=== PATIENT | female | born 1965 | race Caucasian/White ===

== ENCOUNTER → 2016-09-16 15:10 | Outpatient (CLI) | payer BC | END | disposition home or self-care (01) | LOC: D.MRI 15:10 | DX: M54.5 Low back pain (principal) ==

== ENCOUNTER → 2016-11-26 10:12 | Outpatient (CLI) | payer BC | END | disposition home or self-care (01) | LOC: D.US 10:12 | DX: R10.13 Epigastric pain (principal); K21.9 Gastro-esophageal reflux disease without esophagitis; R11.0 Nausea ==

== ENCOUNTER 2017-01-06 11:34 | Outpatient (CLI) | payer BC ==
[~2017-01-06] VITALS: Ht 162.6 cm; Wt 70.0 kg
--- NOTE | ~2017-01-06 | OP ---
PATIENT NAME: MAYRA HERNANDEZ MEDICAL RECORD: [id number] :61 LOCATION:D.CAT ADMISSION DATE: SURGEON: DELIA MCALLISTER MD DATE OF OPERATION: 01/06/2017 PROCEDURE: Left heart catheterization, selective coronary angiography, right femoral artery approach. CATHETERS: A radial catheter and Hickory catheter. The patient was returned to love, sheath removed and TR band was placed. FINDINGS: Left ventriculography in 30-degree QUAN view. Normal wall motion, normal systolic function. CORONARY ANATOMY: Left main: Left main free of disease. LAD: Free of disease in the diagonal system. CIRCUMFLEX: Free of disease in the marginal system. RIGHT CORONARY ARTERY: Dominant artery, gives rise to PDA, free of disease. IMPRESSION: Normal systolic function. Normal coronary anatomy. TRANSINT:[id number] Voice Confirmation ID: [id number] DOCUMENT ID: [id number] DELIA MCALLISTER MD CC: [id number] DICTATION DATE: 01/06/17 1535 PROJECT MANAGER PROCESS DEVELOPMENT: 01/07/17 0101 DEP CLI 01/06/17 [address] [place] [address]
--- NOTE | ~2017-01-06 | HP ---
PATIENT: MAYRA HERNANDEZ MEDICAL RECORD: [id number] ACCOUNT: [id number] LOCATION:DARLENE : 61 ADMISSION DATE: 01/06/17 HISTORY AND PHYSICAL EXAMINATION HISTORY OF PRESENT ILLNESS: A 51-year-old female with history of angina, abnormal ECG, who underwent Cardiolite stress testing in the office, which was found ____ after discussing options, she first proceed with diagnostic angiography to be ready for that purpose. PAST MEDICAL HISTORY: Includes: 1. History of chest pain. 2. ____ unspecified palpitations. 2. Gastroesophageal reflux disease. ALLERGIES: None known. MEDICATIONS: Ambien 10 at bedtime, Cymbalta 60 q. day, propranolol of 10 b.i.d., Protonix 40 q. day. PHYSICAL EXAMINATION: GENERAL: Pleasant female in no acute distress at this time. HEENT: Normocephalic, atraumatic. NECK: No bruits are noted. LUNGS: Good air excursion. ABDOMEN: Soft, nontender. EXTREMITIES: Pulse 2+. No edema. NEUROLOGIC: Grossly intact. IMPRESSION: Angina with positive Cardiolite stress testing. PLAN: For angiography, intervention based on the above. TRANSINT:[id number] Voice Confirmation ID: [id number] DOCUMENT ID: [id number] DELIA MCALLISTER MD CC: [id number] DICTATION DATE: 01/06/17 1310 AD COPY WRITER: 01/06/17 1527 REG [facility] [address] [place] [address]
--- NOTE | ~2017-01-06 | HEMODYNAMI ---
PATIENT:MAYRA HERNANDEZ MEDICAL RECORD: [id number] : 61 LOCATION:DSUDHAKAR ADMISSION DATE: 01/06/17 Generatedon:01/06/201715:34 Patient name: MAYRA HERNANDEZ Patient #: [id number] SSN: : 1965 Date of study: 01/06/2017 Page: Of Hemodynamic Procedure Report Patient Data Patient Demographics Procedure consent was obtained First Name: MAYRA Gender: Female Last Name: DAVID : 1965 [facility] Initial: ROSE Age: 51 year(s) Patient #: [id number] Race: Additional ID: [id number] Contact details Address: [address] [place] [address] rd State: [place] City: [place] Zip code: [address] Past Medical History Allergies: No known allergies Admission Admission Data Admission Date: 01/06/2017 Admission Time: 11:34 Lab Results Lab Result Date: 01/06/2017 Lab Result Time: 0:00 Biochemistry Name Units Result Min Max BUN mg/dl 7 --(*---)-- 7 18 Creatinine mg/dl 0.8 --(-*--)-- 0.6 1.3 CBC Name Units Result Min Max Hemoglobin g/dl 14 --(*---)-- 13.5 17.5 Procedure Procedure Types Cath Procedure Diagnostic Procedure LHC [facility] w/Coronaries Miscellaneous Procedures Moderate Sedation up to 30 minutes Procedure Description Procedure Date Procedure Date: 01/06/2017 Procedure Start Time: 15:22 Procedure End Time: 15:30 Procedure Staff Name Function Lawrence Lobato RT Scrub Sloan Prakash MD Performing Physician Martha Qureshi RN Nurse Lloyd Baker RT Monitor Procedure Data Cath Procedure Fluoroscopy Diagnostic fluoroscopy Total fluoroscopy Time: 2.2 time: 2.2 min min Diagnostic fluoroscopy Total fluoroscopy dose: 319 dose: 319 mGy mGy Contrast Material Contrast Material Type Amount (ml) Isovue 300 62 Entry Location Entry Primary Successful Side Size Upsize Upsize Entry Closure Paige ccessful Closure Location (Fr) 1 (Fr) 2 (Fr) Remarks Device Remarks Radial Right 6 Fr Mechanical artery Short Compression Diagnostic catheters Device Type Used For End Catheter Placement Terumo 5Fr [place] 110cm LV Angiography catheter Procedure Complications No complications Procedure Medications Medication Administration Route Dosage Oxygen NC 2 l/min Heparin Flush Bag added to field 2 bags (1000units/500ml NS) Lidocaine 2% added to field 20 Radial Cocktail added to field 1 syringe (Verapomil 2mg/Nitro 400mcg/Heparin 1500units) Versed I.V. 1 mg Fentanyl I.V. 50 mcg Versed I.V. 1 mg Fentanyl I.V. 50 mcg Fentanyl I.V. 50 mcg Radial Cocktail I.A. 1 syringe (Verapomil 2mg/Nitro 400mcg/Heparin 1500units) Hemodynamics Rest HGB: 14 (g/dl) Heart Rate: 61 (bpm) Pressure Samples Time Site Value (mmHg) Purpose Heart Use Rate(bpm) 15:24 LV 111/14,18 EDP 70 15:24 LV 120/17,20 Pullback 73 15:24 AO 122/82(101) Pullback 73 Gradients Valve Time Site 1 Site 2 Mean SEP/DFP Peak To Heart Use (mmHg) (sec/min) Peak Rate (mmHg) (bpm) Aortic 15:24 LV AO 0 73 120/17,20 122/82(101) Calculations Valve P-P Mean Valve Index Valve Source Name Gradient Area Flow (cm2) Aortic 0 0 Snapshots Pre Cath Intra NCS Post Cath Vital Signs Time Heart Resp SPO2 etCO2 [id number] NIBP (mmHg) Rhythm Pain Sedation Rate (ipm) (%) (mmHg) (mmHg) Status Level (bpm) 14:52:10 56 20 98 0 0 148/89(110) NSR 0 (11) 10(A) , No pain 14:56:25 60 15 98 0 0 145/90(113) NSR 0 (11) 10(A) , No pain 15:00:43 53 17 98 0 0 121/79(103) NSR 0 (11) 10(A) , No pain 15:04:51 61 19 100 0 0 128/76(98) NSR 0 (11) 10(A) , No pain 15:09:03 59 19 100 0 0 130/75(101) NSR 0 (11) 10(A) , No pain 15:13:15 60 16 100 0 0 126/75(103) NSR 0 (11) 10(A) , No pain 15:17:27 64 16 100 0 0 119/73(98) NSR 0 (11) 10(A) , No pain 15:21:33 63 17 99 0 0 129/80(116) NSR 0 (11) 9(A) , No pain 15:25:49 72 18 95 0 0 110/62(88) NSR 0 (11) 9(A) , No pain 15:29:57 72 19 98 0 0 117/66(89) NSR 0 (11) 9(A) , No pain Medications Time Medication Route Dose Verified Delivered Reason Notes Effectiveness by by 14:51:09 Oxygen NC 2 l/min Sloan Martha Per [facility] Theodore tinoco MD 14:51:18 Heparin Flush added 2 bags Sloan Lisa used for Bag to Ages Ages procedure (1000units/500ml field MD FENG NS) 14:51:26 Lidocaine 2% added 20ml Sloan Devlinory used for to vial Dwain Dwain procedure field MD FENG 14:58:27 Radial Cocktail added 1 Sloan Lisa used for (Verapomil to syringe Dwain Dwain procedure 2mg/Nitro field MD FENG 400mcg/Hepari 15:08:46 Versed I.V. 1 mg Sloan Martha Per [facility] Theodore tinoco MD 15:08:55 Fentanyl I.V. 50 mcg Sloan Martha for sedation [facility] Theodore Qureshi RN, MD 15:13:30 Versed I.V. 1 mg Sloan Martha Per [facility] Theodore tinoco MD 15:13:32 Fentanyl I.V. 50 mcg Sloan Martha for sedation [facility] Theodore Qureshi RN, MD 15:17:23 Fentanyl I.V. 50 mcg Sloan Martha for sedation [facility] Theodore Qureshi RN, MD 15:23:09 Radial Cocktail I.A. 1 Sloan Lisa for (Verapomil syringe Dwain Ages vasodilation 2mg/Maisha FENG MD 400mcg/Hepari Procedure Log Time Note 14:27:28 Martha Qureshi RN sent for patient. Start room use. 14:27:29 Time tracking: Regular hours 14:27:33 Plan of Care:Hemodynamics will remain stable., Cardiac rhythm will remain stable., Comfort level will be maintained., Respiratory function will remain adequate., Patient/ family verbilizes understanding of procedure., Procedure tolerated without complication., Recovers from procedure without complications.. 14:45:59 Patient received from Pre/Post Procedure Room to CCL 1 Alert and oriented. Tansferred to table in Supine position. 14:46:00 Warm blankets applied, and valerie hugger turned on for patient comfort. 14:46:01 Correct patient and procedure confirmed by team. 14:46:02 ECG and BP/O2 sat monitors applied to patient. 14:46:02 Signed procedure consent form obtained from patient. 14:50:57 Vital chart was started 14:51:09 Oxygen 2 l/min NC was administered by Martha Qureshi RN; Per physician; 14:51:18 Heparin Flush Bag (1000units/500ml NS) 2 bags added to field was administered by Sloan Prakash MD; used for procedure; 14:51:26 Lidocaine 2% 20ml vial added to field was administered by Sloan Prakash MD; used for procedure; 14:55:19 Baseline sample Acquired. 14:55:22 Rhythm: sinus rhythm 14:55:24 Full Disclosure recording started 14:56:04 H&P Date Dictated: 01/06/2017 Within 30 days and on chart., H&P Addendum completed by physician on day of procedure. (MUST COMPLETE FOR ALL OUTPATIENTS). 14:56:06 Pre-procedure instructions explained to patient. 14:56:07 Pre-op teaching completed and patient verbalized understanding. 14:56:08 Family in waiting room. 14:56:12 Patient NPO since Midnight. 14:56:27 Patient allergic to No known allergies 14:56:30 Is the patient allergic to Iodine/contrast media? No. 14:56:37 Is patient on blood thinner?No 14:57:27 Patient diabetic? No. 14:57:35 ----Pre-sedation anethsthesia assessment.---- 14:57:38 Previous problem with sedation/anesthesia? No ? 14:57:40 Snore? Yes 14:57:41 Sleep apnea? Yes 14:57:43 Deviated septum? No 14:57:44 Opens mouth fully? Yes 14:57:46 Sticks out tongue? Yes 14:57:48 Airway obstruction? No ? 14:57:51 Dentures? No ? 14:57:53 Pre procedure: right dorsailis pedis pulse 1+ Palpable, but thready & weak; easily obliterated 14:57:57 Modified Matias's test Ulnar < 7 seconds 14:57:59 Patient pain scale 0/10 ?. 14:58:05 IV patent on arrival in left antecubital with 0.9% NaCl at 10ml/hr. 14:58:26 Lab Result : Hemoglobin 14 g/dl 14:58:26 Lab Result : Creatinine 0.8 mg/dl 14:58:26 Lab Result : BUN 7 mg/dl 14:58:27 Radial Cocktail (Verapomil 2mg/Nitro 400mcg/Heparin 1500units) 1 syringe added to field was administered by Sloan Prakash MD; used for procedure; 14:59:13 Lab results completed and on chart. 14:59:16 Right Radial & Right Groin area was prepped with chlora-prep and draped in sterile fashion 14:59:17 Alarms reviewed by R. N. 14:59:18 Sharps counted by scrub and verified by R.N. 14:59:23 Use device set Radial Dx 14:59:24 Medline Cath Pack opened to sterile field. 14:59:24 Acist Syringe opened to sterile field. 14:59:25 Terumo 6Fr Slender Glidesheath opened to sterile field. 14:59:25 Bag Decanter opened to sterile field. 14:59:26 Acist Hand Control opened to sterile field. 14:59:26 St Adam 260cm J .035 wire opened to sterile field. 14:59:27 MBrace Wrist Support opened to sterile field. 14:59:27 Tegaderm 4 x 4 opened to sterile field. 14:59:27 Acist Manifold opened to sterile field. 15:08:18 --------ALL STOP TIME OUT------ 15:08:19 Final Timeout: patient, procedure, and site verified with staff and physician. All members of the team are in agreement. 15:08:21 Right Radial & Right Groin site verified by team. 15:08:25 Physical assessment completed. ASA score P 2 - A patient with mild systemic disease as per Sloan Prakash MD. 15::29 Sedation plan: IV Moderate Sedation Versed, Fentanyl 15::46 Versed 1 mg I.V. was administered by Martha Qureshi RN; Per physician; 15::55 Fentanyl 50 mcg I.V. was administered by Martha Qureshi RN; for sedation; 15::30 Versed 1 mg I.V. was administered by Martha Qureshi RN; Per physician; 15::32 Fentanyl 50 mcg I.V. was administered by Martha Qureshi RN; for sedation; 15:14:24 Zero performed for pressure channel P1 15:17:23 Fentanyl 50 mcg I.V. was administered by Martha Qureshi RN; for sedation; 15::39 PROSEDURE START 15::56 Local anesthetic to right radial artery with Lidocaine 2% by Sloan Prakash MD.INITIAL ACCESS ONLY 15:23:04 A 6 Fr Short sheath was inserted into the Right Radial artery 15::09 Radial Cocktail (Verapomil 2mg/Nitro 400mcg/Heparin 1500units) 1 syringe I.A. was administered by Sloan Prakash MD; for vasodilation; 15::45 A Terumo 5Fr [place] 110cm catheter was advanced over the wire and used for LV Angiography. 15:23:52 LV angiography performed. 15:24:36 LV hemodynamics recorded. 15:24:46 EF : 60 % 15:26:23 LCA angiography performed. 15:27:34 RCA angiography performed. 15:27:36 Catheter removed. 15::46 Contrast amount:Isovue 300 62ml. 15::57 Sheath removed intact; hemostasis achieved with Mechanical Compression to the Right Radial artery. 15:28:04 Terumo TR Band Standard opened to sterile field. 15:28:07 Procedure ended.(Physican Out) 15::17 Fluoroscopy time 02.20 minutes. 15:: Fluoroscopy dose: 319 mGy 15:: Flurop Dose total: 319 15:29:05 Sharps counted by scrub and verified by R.N. 15::08 TR band inflated with 10cc of air. 15:29:10 Insertion/operative site no bleeding no hematoma. 15:29:16 Post right radial artery:stable 15:29:17 Post Procedure Pulses reassessed and unchanged 15:29:31 Post procedure rhythm: sinus rhythm 15:29:37 Post procedure instruction explained to patient.Patient verbalizes understanding. 15:29:55 Procedure type changed to Cath procedure, Diagnostic procedure, LHC, LHC w/Coronaries, Miscellaneous Procedures, Moderate Sedation up to 30 minutes 15:30:14 Procedure and supply charges have been captured, reviewed, submitted and are correct. 15:30:34 Procedure Complication : No complications 15:30:36 Vital chart was stopped 15:30:37 See physician's report for complete and final results. 15:30:46 Report given to Pre/Post Procedure Room. 15:30:50 Patient transfered to Pre/Post Procedure Room with Stretcher. 15:30:52 Full Disclosure recording stopped 15:30:52 Procedure ended. 15:30:58 End room use (Document Last) Device Usage Item Name Manufacture Quantity Catalog Hospital Part Current Minimal Lot# / Number Charge Number Stock Stock Serial# Code Acist Acist 1 [id number] [id number] 379424 [id number] 20 Syringe [employer] Inc Medline Cardinal 1 [id number] [id number] 10675 489311 5 Cath Pack Health Bag Microtek 1 2001S 271474 22104 728755 5 [employer] Terumo 6Fr Terumo 1 [id number] 802402 659447 578370 [address] [facility] St Adam 1 279760 970411 886678 222242 30 260cm J .035 wire Acist Hand Acist 1 17686 376569 314185 972184 5 Control [employer] Inc Acist Acist 1 75741 882566 331034 478881 5 Manifold [employer] Inc Tegaderm 4 3M 1 1626W 289912 558268 651354 5 x 4 MBrace Advanced 1 140-0250-00 600240 71427 965177 5 Wrist Vascular Support [employer] Terumo 5Fr Terumo 1 40-8321 122955 590503 442186 5 [place] 110cm catheter Terumo TR Terumo 1 [id number] 789224 791518 526921 40 Band Standard Signature Audit Labelle Stage Time Signature Unsigned Intra-Procedure 01/06/2017 Lloyd Baker 3:34:43 PM RT(R) Signatures Monitor : Lloyd Baker RT Signature : Date : Time : [id number] [place] [address]
[2017-01-06] MEDS ORDERED: AMBIEN10 MG PO (12:09)
[2017-01-06] MEDS ORDERED: CYMBALTA60 MG PO (12:11)
[2017-01-06] MEDS ORDERED: PROTONIX40 MG PO (12:11)
[2017-01-06] MEDS ORDERED: INDERAL10 MG PO (12:11)
[2017-01-06] MEDS ORDERED: BAYER CHEWABLE81 MG PO (12:12)
[2017-01-06] MEDS ORDERED: HYDROCODONE-APA1 TAB PO (12:12)
[2017-01-06] MEDS ORDERED: VITAMIN D5000 UNIT PO (12:14)
[2017-01-06] MEDS ORDERED: KLONOPIN1 MG PO (12:17)
[2017-01-06 12:29] VITALS: BP 144/86; Ht 162.6 cm; Wt 70.0 kg
[2017-01-06 13:01] LABS: BASOPHILS 0.3 % (0-2); HEMATOCRIT 41.3 % (36.0-48.0); IMMATURE GRANULOCYTES 0.3 % (0-5); LYMPHOCYTES 26.4 % (15-50); MCH 32.4 pg (26.0-34.0); MCHC 33.9 g/dL (31.0-37.0); MCV 95.6 fL (80.0-100.0); MEAN PLATELET VOLUME 9.7 fL (7.4-10.4); MONOCYTES 6.6 % (2-11); NEUTROPHILS 64.4 % (40-80); PLATELET COUNT 260 10x3/uL (130-400); RBC 4.32 10x6/uL (4.00-5.40); RDW 13.4 % (11.5-14.5); WBC 6.9 10x3/uL (4.8-10.8)
[2017-01-06 13:06] LABS: CALC OSMOLALITY 280 mosm/kg (275-300); CALCIUM 9.1 mg/dL (8.5-10.1); CARBON DIOXIDE 25.4 mmol/L (21.0-32.0); CHLORIDE - SERUM 106 mmol/L (98-107); CREATININE - SERUM 0.8 mg/dL (0.6-1.3); GLUCOSE 93 mg/dL (74-106); POTASSIUM - SERUM 3.9 mmol/L (3.5-5.1); SODIUM 142 mmol/L (136-145); UREA NITROGEN 7 mg/dL (7-18); eGFR NON AFRICAN AMERICAN 79 mL/min (90-120)
[2017-01-06 13:51] LABS: HCG SERUM NEGATIVE (NEGATIVE)
--- NOTE | 2017-01-06 15:45 | NUR ---
1545 RECIEVED BACK TO ROOM VIA STRETCHER FROM INFECTION CONTROL SPECIALIST WITH TR BAND TO R/WRIST CDI NO BLEEDING NO HEMATOMA NOTED. INSTRUCTED PATIENT TO KEEP RUE STRAIGHT NO BENDING OR FLEXING OF WRIST. 1600 CHEST PAIN DENIED WITH VSS. TR BAND REMAINS TO R/WRIST CDI NO BLEEDING NO HEMATOMA NOTED 1630 SITTING WITH HOB UP 45 DEGREES CHEST PAIN IS DENIED. TR BAND TO R/WRIST REMAINS INTACT WITH NO BLEEDING NO HEMATOMA NOTED
--- NOTE | 2017-01-06 16:50 | NUR ---
VSS WITH CHEST PAIN DENIED TR BAND REMAINS TO R/WRIST CDI NO BLEEDING NO HEMATOMA NOTED. FAMILY AT SIDE
== END 2017-01-06 17:30 | disposition home or self-care (01) ==
LOC: D.CATH 11:34
PROVIDERS: Internal Medicine Interventional Cardiology
DX: I20.9 Angina pectoris, unspecified (principal); R94.39 Abnormal result of other cardiovascular function study; R00.2 Palpitations; K21.9 Gastro-esophageal reflux disease without esophagitis

== ENCOUNTER 2018-03-27 15:30 | Emergency (ER) | payer MEDICARE ==
[~2018-03-27] VITALS: Ht 162.6 cm; Wt 58.6 kg
[~2018-03-27 15:30] MED LIST: AMBIEN10 MG PO; BAYER CHEWABLE81 MG PO; CYMBALTA60 MG PO; HYDROCODONE-APA1 TAB PO; INDERAL10 MG PO; KLONOPIN1 MG PO; PROTONIX40 MG PO; VITAMIN D5000 UNIT PO
[2018-03-27 15:35] VITALS: Ht 162.6 cm; Wt 58.6 kg
[2018-03-27] MEDS ORDERED: ZANAFLEX4 MG PO (17:47)
[2018-03-27 17:53] VITALS: BP 155/86
== END 2018-03-27 17:53 | disposition home or self-care (01) ==
LOC: D.ER 15:30
DX: S39.012A Strain of muscle, fascia and tendon of lower back, initial encounter (principal); V43.52XA Car driver injured in collision with other type car in traffic accident, initial encounter; Y93.89 Activity, other specified; Y92.410 Unspecified street and highway as the place of occurrence of the external cause; S16.1XXA Strain of muscle, fascia and tendon at neck level, initial encounter; S20.219A Contusion of unspecified front wall of thorax, initial encounter; M54.5 Low back pain; R07.9 Chest pain, unspecified; F17.200 Nicotine dependence, unspecified, uncomplicated